=== PATIENT | female | born 1940 | race Caucasian/White ===

== ENCOUNTER → 2017-04-16 | Outpatient (CLI) | payer OTHER ==
[~2017-04-16] MED LIST: BABY ASPIRIN81 MG PO; COZAAR100 MG PO; MAXZIDE 37.5 M1 EACH PO; METFORMIN HCL500 MG PO; OMEGA 3-6-91200 MG PO; TALADINE300 MG PO; VITAMIN D2000 INTUN PO
== END | disposition home or self-care (01) ==
DX: M16.11 Unilateral primary osteoarthritis, right hip (principal); R26.2 Difficulty in walking, not elsewhere classified; M25.551 Pain in right hip; M25.651 Stiffness of right hip, not elsewhere classified; M62.81 Muscle weakness (generalized)
CPT/HCPCS: 97110 GP; 97150 GO; 97161 GP; 97165 GO; G8978 GP; G8979 GP; G8980 GP; G8987 GO; G8988 GO; G8989 GO

== ENCOUNTER 2017-04-30 06:27 | Inpatient (IN) | payer OTHER ==
[~2017-04-30] VITALS: Ht 165.1 cm; Wt 110.0 kg
[~2017-04-30 06:27] MED LIST changes: +OMEGA 3-6-9 11200 MG PO; +VITAMIN D-32000 UNI2 PO; +ZANTAC300 MG PO
[2017-04-30 07:07] LABS: POINT-OF-CARE METER ID UU13113694
[2017-04-30 08:12] VITALS: BP 141/77
[2017-04-30 13:05] LABS: POINT-OF-CARE METER ID UU13113675
[2017-04-30 13:40] LABS: HEMATOCRIT 31.7 % (36.0-46.0); MCHC 30.6 G/DL (30.0-36.0); MCV 78.5 FL (83-99); MEAN PLAT.VOLUME 10.4 uM^3 (9.5-12.4); PLATELET COUNT 231 K/uL (156-360); RBC DIS.WIDTH-CV 17.2 % (11.8-14.6); RBC DIS.WIDTH-SD 49.3 % (39-53); RED BLOOD COUNT 4.04 M/uL (3.80-5.20); WHITE BLOOD COUNT 7.7 K/uL (4.1-10.2)
[2017-04-30 13:46] VITALS: BP 118/55
[2017-04-30 15:44] VITALS: BP 126/62
[2017-04-30 16:27] LABS: POINT-OF-CARE METER ID UU14174215
[2017-04-30 20:14] VITALS: BP 106/53
[2017-04-30 22:00] LABS: POINT-OF-CARE METER ID UU14174215
[2017-05-01 00:10] VITALS: BP 115/55
[2017-05-01 04:20] VITALS: BP 135/61
[2017-05-01 06:59] LABS: ANION GAP 12 MEQ/L (2-14); CHLORIDE 100 MEQ/L (99-109); GFR ESTIMATE (CALCULATED) > 59 mL/min/; GLUCOSE 124 mg/dL (70-99); POTASSIUM 3.8 MEQ/L (3.7-5.4); SAMPLE HEMOLYSIS CHECK 0; SAMPLE ICTERIC CHECK 0; SAMPLE LIPEMIA CHECK 0; SODIUM 137 MEQ/L (136-147); UREA NITROGEN (BUN) 14 mg/dL (9-23)
[2017-05-01 07:45] LABS: POINT-OF-CARE METER ID UU14174215
[2017-05-01 08:00] VITALS: BP 127/60
[2017-05-01 11:34] LABS: POINT-OF-CARE METER ID UU14174215
[2017-05-01 11:43] VITALS: BP 118/56
[2017-05-01 12:36] LABS: HEMATOCRIT 28.8 % (36.0-46.0); MCV 78.9 FL (83-99)
[2017-05-01 16:00] VITALS: BP 122/58
[2017-05-01 16:44] LABS: POINT-OF-CARE METER ID UU14174215
[2017-05-01 20:30] VITALS: BP 193/58
[2017-05-01 22:12] LABS: POINT-OF-CARE METER ID UU14174215
[2017-05-02 00:15] VITALS: BP 138/58
[2017-05-02 04:29] VITALS: BP 128/62
[2017-05-02 07:46] LABS: POINT-OF-CARE METER ID UU14174215
[2017-05-02 08:10] VITALS: BP 136/60
[2017-05-02] MEDS ORDERED: ENDOCET 5-3251 EACH PO (08:54)
[2017-05-02] MEDS ORDERED: LOVENOX40 MG/0.4 SC (08:54)
[2017-05-02 11:35] VITALS: BP 123/69
[2017-05-02 11:42] LABS: POINT-OF-CARE METER ID UU14174215
[2017-05-02 13:50] VITALS: BP 109/59
== END 2017-05-02 13:56 | disposition home health service (06) | DRG 554 ==
LOC: 2SOUTH → 3WEST 13:34 → 2SOUTH 16:20 → 3WEST 05-02 13:56
PROVIDERS: Orthopaedic Surgery
DX: M16.11 Unilateral primary osteoarthritis, right hip (principal); I10 Essential (primary) hypertension; K21.9 Gastro-esophageal reflux disease without esophagitis; E78.00 Pure hypercholesterolemia, unspecified; G47.30 Sleep apnea, unspecified; E11.9 Type 2 diabetes mellitus without complications; Z68.41 Body mass index [BMI] 40.0-44.9, adult; Z90.710 Acquired absence of both cervix and uterus; Z96.651 Presence of right artificial knee joint; Z98.41 Cataract extraction status, right eye; Z98.42 Cataract extraction status, left eye; Z82.49 Family history of ischemic heart disease and other diseases of the circulatory system; Z80.1 Family history of malignant neoplasm of trachea, bronchus and lung
CPT/HCPCS: 73501; 80048; 82948; 85014; 85018; 85027; 97530 GO; J0131; J0690; J1650; J1815; J2250; J2405; J3370; J7050